=== PATIENT | male | born 1955 | race Caucasian/White ===

== ENCOUNTER 2023-01-30 09:11 | Observation (INO) ==
--- NOTE | 2022-11-27 15:56 | PAT Medication Instructions ---
Medication Instructions Date of Service November 27, 2022 Home Medications Medication Instructions Recorded gabapentin 300 mg capsule 300 mg PO USEASDIRECTD PRN pain 10/20/22 #90 caps hydrocodone 5 mg-acetaminophen 325 1 tab PO Q6H PRN pain #40 tabs 11/19/22 mg tablet gabapentin 300 mg capsule 300 mg PO USEASDIRECTD PRN albuterol sulfate 90 mcg/actuation aerosol inhaler 1 puff inhalation QID PRN atenolol 50 mg-chlorthalidone 25 mg tablet 1 tab PO QAM budesonide-formoterol HFA 160 mcg-4.5 mcg/actuation aerosol inhaler (Symbicort) 2 puff inhalation BID folic acid 1 mg tablet 1 mg PO QAM multivitamin 1 tab PO QAM omega 1-bof-fvg-fish oil 1,000 mg (120 mg-180 mg) capsule (Fish Oil) 1 cap PO PM pantoprazole 40 mg tablet,delayed release 40 mg PO QAM sertraline 100 mg tablet 100 mg PO QAM hydrocodone 5 mg-acetaminophen 325 mg tablet 1 tab PO Q6H PRN Continue as directed gabapentin 300 mg capsule 300 mg PO USE DIRECTED PRN(if needed) STOP taking 2 weeks before surgery omega 3-ame-mpe-fish oil 1,000 mg (120 mg-180 mg) capsule (Fish Oil) 1 cap PO PM DO NOT take the morning of surgery atenolol 50 mg-chlorthalidone 25 mg tablet 1 tab PO QAM folic acid 1 mg tablet 1 mg PO QAM multivitamin 1 tab PO QAM Take morning of surgery With a small sip of water, OTHERWISE NOTHING TO EAT OR DRINK AFTER MIDNIGHT: albuterol sulfate 90 mcg/actuation aerosol inhaler 1 puff inhalation QID PRN(use if needed; please bring with you to hospital day of surgery if possible) budesonide-formoterol HFA 160 mcg-4.5 mcg/actuation aerosol inhaler (Symbicort) 2 puff inhalation BID pantoprazole 40 mg tablet,delayed release 40 mg PO QAM sertraline 100 mg tablet 100 mg PO QAM hydrocodone 5 mg-acetaminophen 325 mg tablet 1 tab PO Q6H PRN(if needed) Take evening before surgery albuterol sulfate 90 mcg/actuation aerosol inhaler 1 puff inhalation QID PRN(if needed) budesonide-formoterol HFA 160 mcg-4.5 mcg/actuation aerosol inhaler (Symbicort) 2 puff inhalation BID hydrocodone 5 mg-acetaminophen 325 mg tablet 1 tab PO Q6H PRN(if needed) Other Notes If you have any questions please call us at [phone] or [phone] or [phone] or [phone]
--- NOTE | 2022-12-04 12:53 | Anesthesiology Consultation ---
Date of Service December 04, 2022 Assessment & Plan (1) Encounter for pre-operative examination: - to anesthesiologist discretion if additional testing is needed DOS. - awaiting PCP clearance including notation on pre-op anemia, respiratory status and hyponatremia. Surgeon's office made aware. - Outpatient joint assessment: Patient is currently scheduled for inpatient pathway. If re-evaluated pending system levels during current pandemic/surgeon requests outpatient pathway, patient is not recommended candidate for outpatient joint program from anesthesia standpoint. Chart Review Chart Review: Pending: Refer to Additional Notes / Consult section and Patient seen in Pre Admission Testing Teaching & Discussion Pre-Anesthesia Teaching/Discussion Notes: Instructed NPO after midnight before surgery, except medications with 15 cc of water. Medication instructions provided according to the PAT guidelines. History Surgery Operation Date: 12/16/22 10:45 Proposed Procedures p Left Librarian Specialist Total Shoulder Arthroplasty - Juliocesar Garner, Height/Weight Height: 5 ft 8 in Weight: 84.822 kg Allergies Allergy/AdvReac Type Severity Reaction Status Date / Time aspirin AdvReac Unknown HX Verified 11/27/22 10:32 BLEEDING ULCERS; CAUSES STOMACH BURNING meperidine AdvReac Unknown N/V Verified 11/27/22 10:32 NSAIDS (Non-Steroidal AdvReac Unknown HX Verified 11/27/22 10:32 Anti-Inflamma BLEEDING ULCERS; CAUSES STOMACH BURNING Medications Home Medications Medication Instructions Recorded Confirmed Last Taken gabapentin 300 mg capsule 300 mg PO USEASDIRECTD PRN pain 10/20/22 11/27/22 Unknown #90 caps albuterol sulfate 90 mcg/actuation 1 puff inhalation QID PRN Wheezing 10/27/22 11/27/22 10/30/22 aerosol inhaler atenolol 50 mg-chlorthalidone 25 1 tab PO QAM 10/27/22 11/27/22 10/29/22 mg tablet budesonide-formoterol HFA 160 2 puff inhalation BID 10/27/22 11/27/22 10/30/22 02:30 mcg-4.5 mcg/actuation aerosol inhaler (Symbicort) folic acid 1 mg tablet 1 mg PO QAM 10/27/22 11/27/22 10/26/22 multivitamin 1 tab PO QAM 10/27/22 11/27/22 10/26/22 omega 5-jul-lje-fish oil 1,000 mg 1 cap PO PM 10/27/22 11/27/22 10/26/22 (120 mg-180 mg) capsule (Fish Oil) pantoprazole 40 mg tablet,delayed 40 mg PO QAM 10/27/22 11/27/22 10/30/22 04:30 release sertraline 100 mg tablet 100 mg PO QAM 10/27/22 11/27/22 10/30/22 04:30 hydrocodone 5 mg-acetaminophen 325 1 tab PO Q6H PRN pain #40 tabs 11/19/22 11/27/22 Unknown mg tablet Additional Notes: Pt was advised he IS to take atenolol-chlorthalidone day of surgery. This was corrected on provided medication instructions and patient verbalized full understanding and agreement, denied questions or concerns. Past Medical History Medical History (Updated 12/04/22 @ 13:13 by Padmini Charlton PA-C) Anxiety and depression Arm fracture, left age 14 with repair Chronic obstructive pulmonary disease last rescue inhaler use this morning, uses rescue inhaler every morning and nebulizer 2-4 times daily Fusion of spine cervical > ROM somewhat limited up and down GERD (gastroesophageal reflux disease) controlled, stable per pt Hiatal hernia Hypertension controlled, stable per pt Patient denies h/o stroke, seizures, heart attack, heart failure, DM, blood clots or blood transfusions. Exercise / Class Metabolic Activity III < 4 Walking/Shop/Light housework (occasional shortness of breath with usual activities; ongoing x yrs, denies change or worsening; denies chest discomfort) Past Family History Family History Other No family history of adverse response to anesthesia Past Surgical History Surgical History (Updated 12/04/22 @ 13:16 by Padmini Charlton PA-C) H/O arthroscopy of shoulder LEFT 10/30/22 LMA#5 + PNB. History of appendectomy History of arthroscopy knee. ACL > right History of colonoscopy History of esophagogastroduodenoscopy (EGD) History of total knee replacement right Hx of vasectomy and reversal Nausea and vomiting after administration of anesthetic agent after spinal from a procedure > for several days; denies needing scop patch Past Anesthesia History No Hx of Anesthesia Complications and No Family Hx of Anesthesia Complications History of PONV No Hx of Motion Sickness and History of PONV (denies needing scop patch) Social History Smoking Status: Current every day smoker tobacco type: cigarettes Smoking cigarettes per day: 1 ppd>ADVISED Do You Dip or Chew Tobacco: No Hx Alcohol Use: Yes Alcohol type: wine alcohol intake frequency: 3 or more drinks per day Alcohol Intake Frequency Comment: 2-4 DRINKS DAILY-advised substance use type: does not use Review of Systems Snoring, denies witnessed apneas. Patient denies chest pain, fever, chills, or palpitations. Physical Exam Vital Signs Vitals BP 139/77 P 64 TEMP 98.5 SP02 95% on RA RESP 18 Physical Full cervical extension range of motion without pain TMD 3.5 finger breadths Mallampati Score 3 Dentition: upper dentures, single remaining lower tooth Lungs: normal respiratory effort. Clear throughout to auscultation, good air movement. Mild end expiratory wheezing throughout, no rales or rhonchi Cardiac: regular rate and rhythm, no murmurs noted Carotid arteries: negative bruit bilat Lab Results Anesthesia Preop Results Results Anesthesia Widget: WBC 10.35 K/ul (4.8-10.8) 12/04/22 Hgb 12.9 g/dl (14.0-18.0) L 12/04/22 Hct 36.4 % (40.1-51.0) L 12/04/22 Plt 433 K/uL (130-400) H 12/04/22 Na 130 mmol/L (136-145) L 12/04/22 K 4.0 mmol/L (3.5-5.1) 12/04/22 Cl 94 mmol/L (98-107) L 12/04/22 CO2 28 mmol/L (21-32) 12/04/22 BUN 11 mg/dl (6-23) 12/04/22 Creat 0.69 mg/dl (0.6-1.4) 12/04/22 Glucose Level 94 mg/dl (70-99(Fasting)) 12/04/22 PT 10.2 Seconds (9.0-12.0) 12/04/22 PTT 31.0 Seconds (21.0-31.0) 12/04/22 INR 1.0 (0.9-1.1) 12/04/22 Blood Type O Negative 12/04/22 Antibody Screen NEGATIVE 12/04/22 Testing Electrocardiogram Date: 10/22/22 NSR, rate [address] lung 08/06/22 Nodules: 4mm subpleural nodule in left lower lobe 4 mm subpleural right middle lobe nodule 3 mm fissural nodule along right, stable in comparison to prior Mild coronary artery calcification COVID-19 Risk Screen Screening Information COVID-19 Screen Date: 12/04/22 Exposure 21 Days Family/Household +COVID Last 21 Days: No Exposure 10 Days Any COVID Exposure Last 10 Days: No Symptoms Last 10 Days Experienced COVID Sx Last 10 Days: No + COVID 0-90 Days COVID + in Last 0-90 Days: No
--- NOTE | 2022-12-11 15:00 | History & Physical Report ---
Date of Service December 11, 2022 Assessment & Plan (1) Rotator cuff tear, left: We will proceed with a left reverse shoulder arthroplasty. Postoperatively he will be placed in a sling and kept overnight for postoperative medical management. He plans to use outpatient physical therapy at home upon discharge. History of Present Illness Chief Complaint: Cuff tear arthropathy of the left shoulder. Primary Care Provider: NO PCP Abebe is a pleasant 67-year-old male who has been dealing with some chronic left shoulder pain. He lives up on the [facility] [place] and went to [place] for his medical treatment. MRI of his shoulder did show a large rotator cuff tear. He underwent a rotator cuff repair several months ago. Unfortunately during the procedure the majority of the cuff was not repairable. He still dealing with a lot of shoulder pain. After failing extensive conservative treatment, he has elected proceed with a left reverse shoulder arth roplasty. Allergies Allergy/AdvReac Type Severity Reaction Status Date / Time aspirin AdvReac Unknown HX Verified 11/27/22 10:32 BLEEDING ULCERS; CAUSES STOMACH BURNING meperidine AdvReac Unknown N/V Verified 11/27/22 10:32 NSAIDS (Non-Steroidal AdvReac Unknown HX Verified 11/27/22 10:32 Anti-Inflamma BLEEDING ULCERS; CAUSES STOMACH BURNING Home Medications Medication Instructions Recorded Confirmed Type gabapentin 300 mg capsule 300 mg PO USEASDIRECTD PRN pain 10/20/22 11/27/22 Rx #90 caps albuterol sulfate 90 mcg/actuation 1 puff inhalation QID PRN Wheezing 10/27/22 11/27/22 History aerosol inhaler atenolol 50 mg-chlorthalidone 25 1 tab PO QAM 10/27/22 11/27/22 History mg tablet budesonide-formoterol HFA 160 2 puff inhalation BID 10/27/22 11/27/22 History mcg-4.5 mcg/actuation aerosol inhaler (Symbicort) folic acid 1 mg tablet 1 mg PO QAM 10/27/22 11/27/22 History multivitamin 1 tab PO QAM 10/27/22 11/27/22 History omega 5-szg-kbp-fish oil 1,000 mg 1 cap PO PM 10/27/22 11/27/22 History (120 mg-180 mg) capsule (Fish Oil) pantoprazole 40 mg tablet,delayed 40 mg PO QAM 10/27/22 11/27/22 History release sertraline 100 mg tablet 100 mg PO QAM 10/27/22 11/27/22 History hydrocodone 5 mg-acetaminophen 325 1 tab PO Q6H PRN pain #40 tabs 11/19/22 11/27/22 Rx mg tablet hydrocodone 5 mg-acetaminophen 325 1 tab PO Q6H PRN pain #30 tabs 12/08/22 Rx mg tablet Past Med/Surg History Medical History Anxiety and depression Arm fracture, left age 14 with repair Chronic obstructive pulmonary disease last rescue inhaler use this morning, uses rescue inhaler every morning and nebulizer 2-4 times daily 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 History of appendectomy History of arthroscopy knee. ACL > right History of colonoscopy History of esophagogastroduodenoscopy (EGD) History of total knee replacement right Hx of vasectomy and reversal Nausea and vomiting after administration of anesthetic agent after spinal from a procedure > for several days; denies needing scop patch Family History Other No family history of adverse response to anesthesia Social History Smoking Status: Current every day smoker Cigarettes Per Day: 1 ppd>ADVISED; Second Hand Exposure: Yes ( A CHILD AND CURRENLTY); Hx Alcohol Use: Yes Alcohol type: wine Preferred Language: Nepali Communication Ability: Effective Caser Required: No Beliefs That Will Affect Care: None Current Living Situation: Spouse Feels Safe at Home: Yes Assistive Devices: Denture - Upper and Glasses Review of Systems All systems reviewed & are unremarkable except as noted in HPI & below. Physical Exam On physical examination of left shoulder, he has about 90 degrees forward elevation 90 degrees of abduction. He has 4-5 motor strength throughout.. Constitutional WD/WN, vitals as above Eyes PERRL, conjunctivae normal, anicteric sclerae ENMT external ear and nose normal, oropharynx normal Neck trachea midline, no thyromegaly Respiratory normal respiratory effort, lungs clear to auscultation Cardiovascular RRR, no murmur, no edema Gastrointestinal (Abdomen) normal bowel sounds, soft, nontender, no hepatosplenomegaly Skin no rashes, warm and dry Psychiatric A+Ox3, euthymic affect Results & Data Results & Data Laboratory Results . Diagnostic Findings X-rays of the left shoulder show slight superior migration of the humeral head on the glenoid. There are some mild osteoarthritis.. PG Care Time/CCT Total # of Minutes Spent Total Time Spent with Patient: Total time spent is greater than 50% in coordination of care (as documented) at patient's floor/unit and/or counseling patient: Coding Level of Care Code None Diagnoses Rotator cuff tear, left M75.102
--- NOTE | 2023-01-29 08:00 | History & Physical Report ---
Date of Service January 29, 2023 Assessment & Plan (1) Rotator cuff tear, left: We will proceed with a left reverse shoulder arthroplasty. Postoperatively he will be placed in a sling and kept overnight for postop medical management. He plans to go to outpatient physical therapy at home upon discharge. History of Present Illness Chief Complaint: Cuff tear arthropathy of the left shoulder. Primary Care Provider: NO PCP Abebe is a pleasant six 7-year-old male who I did a left shoulder arthroscopy done about 3 months ago. He had a large a repairable rotator cuff tear. He is still struggling with the shoulder. After failing conservative treatment, he has elected proceed with a left reverse shoulder arthroplasty.. Allergies Allergy/AdvReac Type Severity Reaction Status Date / Time aspirin AdvReac Intermediate HX Verified 01/23/23 14:16 BLEEDING ULCERS; CAUSES STOMACH BURNING NSAIDS (Non-Steroidal AdvReac Intermediate HX Verified 01/23/23 14:16 Anti-Inflamma BLEEDING ULCERS; CAUSES STOMACH BURNING meperidine AdvReac Mild N/V Verified 01/23/23 14:16 Home Medications Medication Instructions Recorded Confirmed Type gabapentin 300 mg capsule 300 mg PO USEASDIRECTD PRN pain 10/20/22 01/23/23 Rx #90 caps albuterol sulfate 90 mcg/actuation 1 puff inhalation QID PRN Wheezing 10/27/22 01/23/23 History aerosol inhaler atenolol 50 mg-chlorthalidone 25 1 tab PO QAM 10/27/22 01/23/23 History mg tablet folic acid 1 mg tablet 1 mg PO QAM 10/27/22 01/23/23 History multivitamin 1 tab PO QAM 10/27/22 01/23/23 History omega 7-dpi-wsu-fish oil 1,000 mg 1 cap PO PM 10/27/22 01/23/23 History (120 mg-180 mg) capsule (Fish Oil) pantoprazole 40 mg tablet,delayed 40 mg PO QAM 10/27/22 01/23/23 History release sertraline 100 mg tablet 100 mg PO QAM 10/27/22 01/23/23 History hydrocodone 5 mg-acetaminophen 325 1 tab PO Q6H PRN pain #30 tabs 01/19/23 01/23/23 Rx mg tablet albuterol sulfate 2.5 mg/0.5 mL 2.5 mg inhalation UD PRN Shortness 01/23/23 01/23/23 History solution for nebulization Of Breath tiotropium 2.5 mcg-olodaterol 2.5 2 puff inhalation QAM 01/23/23 01/23/23 History mcg/actuation mist for inhalation (Stiolto Respimat) Past Med/Surg History Medical History Anxiety and depression Arm fracture, left age 14 with repair Chronic obstructive pulmonary disease last rescue inhaler use this morning, uses rescue inhaler every morning and nebulizer 2-4 times daily Excessive drinking of alcohol 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 History of appendectomy History of arthroscopy knee. ACL > right History of colonoscopy History of esophagogastroduodenoscopy (EGD) History of total knee replacement right Hx of vasectomy and reversal Nausea and vomiting after administration of anesthetic agent after spinal from a procedure > for several days; denies needing scop patch Family History Other No family history of adverse response to anesthesia Social History Smoking Status: Current every day smoker Cigarettes Per Day: 1 ppd>ADVISED; Second Hand Exposure: No; Do You Dip or Chew Tobacco: No; Tobacco Cessation Education Requested by Patient: No Hx Alcohol Use: Yes Alcohol type: wine Hx Substance Use: No Preferred Language: [place] Citizen Communication Ability: Effective Russet Repairer Required: No Beliefs That Will Affect Care: None Current Living Situation: Spouse Other Information That Helps Us Care for You: No Feels Safe at Home: Yes Safety Concerns: Feels Safe At This Time Assistive Devices: Denture - Upper and Glasses Review of Systems All systems reviewed & are unremarkable except as noted in HPI & below. Physical Exam On physical examination of left shoulder, he has about 60 degrees of forward elevation and 60 degrees of abduction. He has 4-5 motion of the full can test and external rotation.. Constitutional WD/WN, vitals as above Eyes PERRL, conjunctivae normal, anicteric sclerae ENMT external ear and nose normal, oropharynx normal Neck trachea midline, no thyromegaly Respiratory normal respiratory effort, lungs clear to auscultation Cardiovascular RRR, no murmur, no edema Gastrointestinal (Abdomen) normal bowel sounds, soft, nontender, no hepatosplenomegaly Skin no rashes, warm and dry Psychiatric A+Ox3, euthymic affect Results & Data Results & Data Laboratory Results . Diagnostic Findings X-rays of the left shoulder show slight superior migration of the humeral head on the glenoid. There is mild glenohumeral arthritis.. PG Care Time/CCT Total # of Minutes Spent Total Time Spent with Patient: Total time spent is greater than 50% in coordination of care (as documented) at patient's floor/unit and/or counseling patient: Coding Level of Care Code None Diagnoses Rotator cuff tear, left M75.102
[~2023-01-30 09:11] MED LIST: ACETAMINOPHEN 500 MG TAB PO SCH; BUPIVACAINE 0.5 % 5 MG/1 ML PF 10ML VIAL ONE; GABAPENTIN 300 MG CAP PO SCH; LR 60ML/HR IV SCH; ORTHO JOINT MIX INFIL SCH; TRANEXAMIC ACID 1,000 MG **IV Intra-op IV SCH; TRANEXAMIC ACID 1,000 MG **IV Pre-op IV SCH; ceFAZolin 2000MG 2,000 MG/15 ML SYR IV SCH; dexAMETHasone 4 MG TAB PO SCH
[2023-01-30] MEDS: FAMOTIDINE 20 MG TAB PO SCH ×2 (10:07→10:37)
[2023-01-30] MEDS ORDERED: BUPIVACAINE 0.5 % 5 MG/1 ML PF 10ML VIAL ONE (10:27)
[2023-01-30] MEDS ORDERED: ATROPINE SULFATE 0.1 MG/ML 10ML SYR IV PRN (10:30)
[2023-01-30] MEDS ORDERED: ePHEDrine sulfate 50 MG/ML AMP IV PRN (10:30)
[2023-01-30] MEDS ORDERED: fentaNYL citrate 100 MCG/2 ML VIAL IV PRN (10:30)
[2023-01-30] MEDS ORDERED: ONDANSETRON INJ 2 MG/ML 2 ML VIAL IV PRN ×2 (10:30→13:56)
[2023-01-30] MEDS ORDERED: HYDROmorphone INJ 2 MG/ML SYR/VIAL IV PRN (10:30)
[2023-01-30] MEDS ORDERED: ALBUT/IPRATROP 3MG/0.5MG NEB 3 ML VIAL NEB STA (10:30)
--- NOTE | 2023-01-30 10:30 | History & Physical Bridge Note ---
Date of Service January 30, 2023 History & Physical Bridge Note I have examined the patient, reviewed the History & Physical and in the interval since the performance of the History & Physical I have noted the following changes of clinical significance: no changes noted
[2023-01-30] MEDS ORDERED: MIDAZOLAM HCL 1 MG/ML 2ML VIAL ONE ×2 (10:54)
[2023-01-30] MEDS ORDERED: ORTHO JOINT ANESTHETIC ONE (10:55)
[2023-01-30] MEDS ORDERED: DEXAMETHASONE SOD INJ 4 MG/ML VIAL ONE (11:47)
[2023-01-30] MEDS ORDERED: PROPOFOL IV EMULSION 10 MG/ML 20 ML VIAL IV ONE (11:47)
[2023-01-30] MEDS ORDERED: ePHEDrine sulfate 50 MG/ML SYR ONE (11:47)
[2023-01-30] MEDS ORDERED: ONDANSETRON INJ 2 MG/ML 2 ML VIAL ONE (11:47)
[2023-01-30] MEDS ORDERED: fentaNYL citrate 100 MCG/2 ML VIAL ONE (11:51)
[2023-01-30] MEDS ORDERED: GLYCOPYRROLATE 0.2 MG/ML VIAL ONE (12:05)
--- NOTE | 2023-01-30 12:43 | Operative Report ---
PG Post Operative Report Pre & Post Diagnosis Operation Date: 01/30/23 11:40 Pre-Op Diagnosis: Cuff tear arthropathy of the left shoulder Post-Op Diagnosis: Cuff tear arthropathy of the left shoulder I identified the patient and participated in the time-out.: Yes Procedure Operation Date: 01/30/23 11:40 Actual Procedures p Left Reverse Total Shoulder Arthroplasty(Left) - Juliocesar Garner DO Surgeon Juliocesar Garner DO Bureau Director Juliocesar Parra PA-C Estimated Blood Loss 250 Findings Consistent with Post-Op Diagnosis Specimens Left humeral head Description of Procedure Implants used: I used a Biomet Comprehensive reverse total shoulder arthroplasty system with a size 11 press fit micro humeral stem, a +6 offset humeral tray and a standard humeral bearing, a 25 mm small augment baseplate with a 6.5 mm central screw and superior and inferior locking screws, and a size 40 mm eccentric glenosphere. Abebe arrived at [facility] for the above procedure. He was seen in the preoperative holding area and the operative extremity was identified and signed. He was given a preoperative antibiotic, TXA, and an interscalene nerve block. He was taken back to the operating room, laid on table in supine position, and put under general anesthesia. He was then put into the beachchair position. The shoulder was then prepped and draped in sterile fashion. A timeout was done and the patient and the operative extremity was properly identified. A deltopectoral approach was used. Dissection was taken down through the fascia and the deltoid was retracted laterally and the conjoined tendon was retracted medially. The anterior shoulder was exposed. The biceps tendon was tenodesed on the previous procedure. The subscapularis was mostly torn. The bottom the subscapularis and the capsule were then directly released off the lesser tuberosity with a peel technique. The inferior capsule was released and the humeral head was dislocated. A canal finding reamer was sent down the center of the humeral canal. Sequential reaming up to a size 11 reamer was done. Off that reamer, a proximal humeral resection guide was placed. The proximal humerus was resected at 135 of inclination and 25 of retroversion. Osteophytes were then removed and the glenoid was exposed. Time was spent doing a complete capsular and labral release. The glenoid guide was then placed in the inferior aspect of the glenoid. A 3.2 mm Steinmann pin was then placed into the glenoid vault at 10 of inclination. The glenoid baseplate was then reamed. The final size 25 mm small augment baseplate was then impacted in the place. A 6.5 mm central screw was then placed followed by superior and inferior locking screws. A 40 mm eccentric glenosphere was then impacted into place. Surrounding soft tissues were then injected with 100 cc an orthopedic pain control cocktail. The proximal humerus was then exposed. Sequential broaching of the humerus up to a size 11 broach was done. Off that broach a +6 humeral tray was trialed. The shoulder was then reduced, brought through a full range of motion, and felt to be stable. The shoulder was then dislocated and the broach was removed. The final size 11 micro press-fit humeral stem was then impacted into place. A standard humeral bearing was then snapped onto a +6 offset humeral tray. The humeral tray was then impacted onto the humeral stem. The shoulder was once again reduced, brought through a full range of motion, and felt to be stable. The subsca pularis was chronically torn and unable to be repaired. A dilute betadyne lavage was then done for 3 minutes. The joint was then irrigated with normal saline solution. Hemostasis was obtained. The interval was closed with 2-0 Vicryl suture. The skin was then closed with 2-0 Vicryl and andrew. A Silverlon dressing was placed and the arm was rested in a regular arm sling. He was then extubated and transferred to a hospital bed. He taken to the postanesthesia care unit in stable condition. He tolerated the procedure well. Juliocesar Parra PA-C, was present for the entire procedure. He was critical for patient positioning, prepping, draping, retraction exposure, wound closure and application of sterile dressing. I attest to the content of the Intraoperative Record and any orders documented therein. Any exceptions are noted below.
--- NOTE | 2023-01-30 13:49 | XRay Report ---
LEFT SHOULDER 2 VIEWS CLINICAL HISTORY: Postoperative examination. FINDINGS: 2 portable views of the left shoulder are compared to study dated 07/23/2022. The skeletal s tructures are osteopenic. A left shoulder arthroplasty is in near anatomic alignment. No acute fractu re is seen. Mild degenerative change is noted at the acromioclavicular joint. Skin clips, soft tissue swelling, and subcutaneous gas overlying the left shoulder are expected postoperative changes. The v isualized left lung parenchyma appears clear noting basilar atelectasis. IMPRESSION: Expected postoperative findings status post left shoulder arthroplasty. No acute fracture is seen. Electronically signed by: Bautista Sahu M.D. 01/30/2023 1:48 PM
[2023-01-30] MEDS ORDERED: GABAPENTIN 300 MG CAP PO PRN (13:56)
[2023-01-30] MEDS ORDERED: ALBUTEROL 0.5% NEB SOLN 2.5 MG/0.5 ML VIAL INH PRN (13:56)
[2023-01-30] MEDS ORDERED: HYDROmorphone INJ 0.5 MG/0.5 ML SYR IV PRN (13:56)
[2023-01-30] MEDS ORDERED: MAGNESIUM HYDROXIDE SUSP 30 ML UDC PO PRN (13:56)
[2023-01-30] MEDS ORDERED: METOCLOPRAMIDE HCL INJ 5 MG/ML 2 ML VIAL IV PRN (13:56)
[2023-01-30] MEDS ORDERED: ALBUTEROL HFA 8 GM INHALER INH PRN (13:56)
[2023-01-30] MEDS ORDERED: bisacodyL 10 MG SUPP PR PRN (13:56)
[2023-01-30] MEDS ORDERED: NALOXONE HCL 0.4 MG/1 ML VIAL/CARP IV PRN (13:56)
[2023-01-30] MEDS ORDERED: FLUTICASONE/VILANTEROL 200/25MCG 14 PUFFS/INHALER INH PRN (14:13)
--- NOTE | 2023-01-30 14:33 | Anesthesiology Progress Note ---
Date of Service January 30, 2023 Anesthesia Post Procedure Vital Signs Vital Signs: Temp Pulse Pulse Resp BP Pulse Ox O2 Del Method 01/30/23 13:55 36.6 C 61 15 102/67 95 Nasal Cannula 01/30/23 13:35 36.3 C L 76 16 103/70 95 Nasal Cannula 01/30/23 13:25 69 14 119/64 96 Nasal Cannula 01/30/23 13:15 67 17 127/71 100 Oxymask 01/30/23 13:05 36.2 C L 75 15 111/71 99 Oxymask 01/30/23 10:38 60 16 93 Room Air 01/30/23 09:53 36.7 C 61 18 135/75 95 Room Air O2 Flow Rate 01/30/23 13:55 2 01/30/23 13:35 2 01/30/23 13:25 2 01/30/23 13:15 10 01/30/23 13:05 10 01/30/23 10:38 01/30/23 09:53 Pain Intensity Left Shoulder: Pain Intensity: 6 Transfer of Care Handoff Completed per policy Notes Mental Status: alert / awake / arousable Patient Amnestic to Procedure: Yes Nausea / Vomiting: adequately controlled Pain: adequately controlled Airway Patency, RR, SpO2: stable & adequate BP & HR: stable & adequate Hydration State: stable & adequate Anesthetic Complications: no major complications apparent
[2023-01-30] MEDS: SODIUM CHLORIDE 0.9% 1000ML 1,000 ML IV SCH (15:06)
[2023-01-30] MEDS: KETOROLAC TROMETHAMINE 15 MG/ML VIAL IV SCH ×2 (15:12→19:51)
[2023-01-30] MEDS: ACETAMINOPHEN 500 MG TAB PO SCH ×2 (15:12→21:00)
[2023-01-30] MEDS: ceFAZolin 2000MG 2,000 MG/15 ML SYR IV SCH (17:56)
[2023-01-30] MEDS: DOCUSATE SODIUM 100 MG CAP PO SCH (19:49)
[2023-01-30] MEDS ORDERED: SENNA 8.6 MG TAB PO SCH (21:00)
[2023-01-31] MEDS: KETOROLAC TROMETHAMINE 15 MG/ML VIAL IV SCH ×3 (00:58→13:17)
[2023-01-31] MEDS: SODIUM CHLORIDE 0.9% 1000ML 1,000 ML IV SCH (01:28)
[2023-01-31] MEDS: ceFAZolin 2000MG 2,000 MG/15 ML SYR IV SCH (03:21)
[2023-01-31] MEDS: ACETAMINOPHEN 500 MG TAB PO SCH ×2 (05:08→13:16)
[2023-01-31] MEDS ORDERED: dexAMETHasone 4 MG TAB PO SCH (08:00)
[2023-01-31] MEDS: oxyCODONE HCL IR 5 MG TAB (IMMEDIATE RELEASE) PO PRN ×2 (08:13→13:17)
[2023-01-31] MEDS: DOCUSATE SODIUM 100 MG CAP PO SCH (08:16)
--- NOTE | 2023-01-31 08:23 | Orthopedic Progress Note ---
Date of Service January 31, 2023 Assessment & Plan (1) Status post reverse total replacement of left shoulder: Overall is doing very well. Is not having much pain in the left shoulder. He will be seen by physical therapy today for ambulation and range of motion exercises. He can be discharged home later today. He will follow-up with orthopedics in 2 weeks. Holly Lomas was seen and examined at bedside this morning. Overall is doing very well. He is not having much pain in the left shoulder. The nerve block is still in effect. He has no complaints.. Review of Systems All systems reviewed & are unremarkable except as noted in HPI & below. Physical Exam On physical examination of his left shoulder, the dressing is clean and dry. He is wearing his sling as instructed. The nerve block is still in effect and he has some weakness of his hand and his wrist.. Results & Data Results & Data Laboratory Results . Diagnostic Findings Postoperative x-rays of the left shoulder show the prosthesis to be in anatomic alignment without any evidence of fracture, education, or loosening. PG Care Time/CCT Total # of Minutes Spent Total Time Spent with Patient: Total time spent is greater than 50% in coordination of care (as documented) at patient's floor/unit and/or counseling patient: Coding Level of Care Code 74010 Post Operative Follow-Up Diagnoses Status post reverse total replacement of left shoulder Z96.612
--- NOTE | 2023-01-31 08:24 | Discharge Summary ---
Date of Service January 31, 2023 Admission HPI (Per Admitting) Abebe is a pleasant six 7-year-old male who I did a left shoulder arthroscopy done about 3 months ago. He had a large a repairable rotator cuff tear. He is still struggling with the shoulder. After failing conservative treatment, he has elected proceed with a left reverse shoulder arthroplasty.. Admission Exam (Per Admitting) On physical examination of left shoulder, he has about 60 degrees of forward elevation and 60 degrees of abduction. He has 4-5 motion of the full can test and external rotation.. Principal Diagnosis Same as "Discharge Diagnosis" noted below under Discharge Instructions. Discharge Exam On physical examination of his left shoulder, the dressing is clean and dry. He is wearing his sling as instructed. The nerve block is still in effect and he has some weakness of his hand and his wrist.. Discharge Data Procedures Performed Operation Date: 01/30/23 11:40 Actual Procedures p Left Reverse Total Shoulder Arthroplasty(Left) - Juliocesar Garner DO Ordered Studies 01/30/23 05:00 US - OR guided needle placemen Routine Hospital Course (1) Status post reverse total replacement of left shoulder: On January 30, 2023 Abebe arrived at [facility] and underwent a left reverse shoulder replacement without complication. He had a general anesthetic and a left interscalene nerve block. Postoperatively he was placed in a sling and transferred to the general orthopedic floors. His hospital course was uneventful. On postop day #1, his vital signs were stable and his pain was well controlled. He was able to participate well with physical therapy doing ambulation and range of motion exercises. He was then discharged home. He will follow-up with orthopedics in 2 weeks. PG Care Time/CCT Total # of Minutes Spent Total Time Spent with Patient: Total time spent is greater than 50% in coordination of care (as documented) at patient's floor/unit and/or counseling patient: Discharge Plan Discharge Items Patient Disposition: Home - Home Health Services Reason For Visit: Degenerative Joint Disease Left Shoulder Discharge Diagnosis: Left reverse shoulder replacement Activity: Per Instructions section Non-emergency contact: Surgeon Call non-emergency contact if: your wound has increased redness and your wound has increased drainage Follow-up/Referrals: PCP,NO [Primary Care Provider] - Diet: Regular Addtl Attending Provider Instructions: Activity and Therapy Recommendations: * If you are using [facility] then therapy will be provided at your home until they feel you have accomplished all of your goals. * If you are using [facility] then Physical Therapy will be provided until they feel you are ready to start Outpatient Physical Therapy. * If you are not using home therapy then Outpatient Physical Therapy should start about 3-5 days from your day of surgery. Therapy will last about 8-12 weeks * Wear your sling for 3 weeks, unless otherwise instructed. You may remove your sling to shower and to dress, but otherwise, you should be in your sling at all times, including while sleeping * The shoulder replacement is very stable and you can use your hand while in the sling * You were shown a series of exercises in the hospital. Do these exercises daily including the exercises you were shown in physical therapy. Medications: * Narcotic You will likely be sent home from the hospital with a prescription for the narcotic pain medication that worked best throughout your stay. * Other medications may be prescribed for specific circumstances. If you have any questions, please call the office at . * Resume previous home medications unless otherwise instructed Dressing Care: Leave the Silverlon dressing in place for 7 days. After 7 days you may remove the dressing. If the incision is not draining then you may leave the andrew open to air. If there is a little bit of drainage or if the andrew are getting stuck on your clothing then cover the incision with a dry dressing. The andrew will be removed at your 2 week follow-up appointment. Showering: You may shower with the Silverlon dressing in place. Do not let the shower spray hit the dressing directly. Pat the Silverlon dressing dry. If the dressing becomes wet underneath, then simply remove the dressing. Keep the incision dry until you are 7 days out from the day of surgery. After 7 days you may remove the Silverlon dressing and shower with the andrew exposed. Let soapy water run over the andrew and pat them dry. Do not scrub or soak the incision. Things To Watch For: * Drainage from the incision site that occurs more than one week after your surgery. * Increased redness at the incision site. * Fever above 102 degrees Fahrenheit. * Unusual chest pain or shortness of breath. * Call [facility] at with any of the above problems Follow-Up Visit: Follow-up with Dr. Garner's PA (Juliocesar Parra) 2-3 weeks after your day of surgery. He will remove your andrew and answer any questions. If you have any additional questions or concerns, Dr Garner is usually in the office at the same time and will be available An appointment was probably scheduled when you signed-up for surgery in the office. If you have any questions call More detailed instructions as well as Frequently Asked Questions were provided in a folder by our office when you signed-up for surgery. Please review these instructions when you get home. If you have any further questions or concerns, please feel free to call the office at [phone] Pending Studies at Discharge: No Stand-Alone Forms: My T-Qu[employer], Smoking Cessation Medications and DC Order Prescriptions: New oxycodone-acetaminophen 5-325 mg tablet 1 tab PO Q6H PRN (Reason: pain) Qty: 30 0RF Continued gabapentin 300 mg capsule 300 mg PO USEASDIRECTD PRN (Reason: pain) Qty: 90 0RF Patient Comments: TID Rx Instructions: 1 by mouth daily for 5 days; then 1 by mouth twice daily for 5 days; then 1 by mouth three times daily thereafter hydrocodone-acetaminophen 5-325 mg tablet 1 tab PO Q6H PRN (Reason: pain) Qty: 30 0RF multivitamin Tablet 1 tab PO QAM sertraline [Zoloft] 100 mg Tablet 100 mg PO QAM atenolol-chlorthalidone [Tenoretic 50] 50-25 mg Tablet 1 tab PO QAM pantoprazole [Protonix] 40 mg Tablet,Delayed Release (Dr/Ec) 40 mg PO QAM folic acid 1 mg Tablet 1 mg PO QAM omega 9-jue-ajw-fish oil [Fish Oil] 1,000 mg (120 mg-180 mg) Capsule 1 cap PO PM albuterol sulfate 90 mcg/actuation Hfa Aerosol Inhaler 1 puff INHALATION QID PRN (Reason: Wheezing) albuterol sulfate 2.5 mg/0.5 mL Solution For Nebulization 2.5 mg INHALATION UD PRN (Reason: Shortness Of Breath) Stiolto Respimat 2.5-2.5 mcg/actuation mist 2 puff inhalation QAM budesonide-formoterol [Symbicort] 160-4.5 mcg/actuation Hfa Aerosol Inhaler 2 puff INHALATION BID PRN (Reason: Shortness Of Breath Or Wheezing) Admission Data Admit Date/Time: 01/30/23 13:02 Attending Provider: Juliocesar Garner Admit Provider: Juliocesar Garner Primary Care Provider: PCP,JEAN
[2023-01-31] MEDS ORDERED: MULTIVITAMIN TAB PO SCH (09:00)
[2023-01-31] MEDS ORDERED: CHLORTHALIDONE 25 MG TAB PO SCH (09:00)
[2023-01-31] MEDS ORDERED: UMECLIDINIUM/VILANTEROL 62.5/25MCG 7 PUFFS/INHALER INH SCH (09:00)
[2023-01-31] MEDS ORDERED: ATENOLOL 50 MG TABLET PO SCH (09:00)
[2023-01-31] MEDS ORDERED: SERTRALINE HCL 100 MG TABLET PO SCH (09:00)
[2023-01-31] MEDS ORDERED: NON-FORMULARY MEDICATION (Multivitamin Tablet) PO SCH (09:00)
[2023-01-31] MEDS ORDERED: FOLIC ACID 1 MG TAB PO SCH (09:00)
== END 2023-01-31 13:52 | disposition home or self-care (01) ==
LOC: 3E 09:11 → ASU 09:11